=== PATIENT | female | born 1940 | race American Indian/Alaskan Native ===

== ENCOUNTER 2022-03-27 13:48 | Emergency (ER) | payer MEDICARE ==
--- NOTE | 2022-03-27 16:28 | Emergency Department Report ---
ED General Adult HPI - General Chief complaint: Urogenital-Female Stated complaint: URINE RETENTION Time Seen by Provider: 03/27/22 15:26 Source: patient, EMS Mode of arrival: Stretcher Limitations: Physical Limitation - History of Present Illness Initial comments: The patient presents to the emergency department from [facility] for evaluation of decreased urine output from a Hines catheter. Patient has noticed a decrease in urinary output since this weekend. Patient denies any fever or chills. There is also concerned that the patient has an infected bedsore. Patient denies chest pain, shortness breath, or headache. -: unknown Severity scale (0 -10): 0 Consistency: constant Improves with: none Worsens with: none Associated Symptoms: denies other symptoms Treatments Prior to Arrival: none - Related Data Previous Rx's Medication Instructions Recorded Last Taken Type Acetaminophen [Acetaminophen TAB] 650 mg PO Q4H PRN tablet 08/19/21 Unknown Rx Levothyroxine [Synthroid] 25 mcg PO DAILY@0600 #30 tablet 08/19/21 Unknown Rx Sulfamethoxazole/Trimethoprim 1 each PO BID #14 03/27/22 Unknown Rx [Bactrim DS TAB] Allergies Allergy/AdvReac Type Severity Reaction Status Date / Time Penicillins Allergy Hives Verified 03/27/22 13:55 ED Review of Systems ROS: Stated complaint: URINE RETENTION Other details as noted in HPI Comment: All other systems reviewed and negative Constitutional: denies: chills, fever Eyes: denies: eye pain, eye discharge, vision change ENT: denies: ear pain, throat pain Respiratory: denies: cough, shortness of breath, wheezing Cardiovascular: denies: chest pain, palpitations Endocrine: no symptoms reported Gastrointestinal: denies: abdominal pain, nausea, diarrhea Genitourinary: denies: urgency, dysuria, discharge Musculoskeletal: denies: back pain, joint swelling, arthralgia Skin: denies: rash, lesions Neurological: denies: headache, weakness, paresthesias Psychiatric: denies: anxiety, depression Hematological/Lymphatic: denies: easy bleeding, easy bruising ED Past Medical Hx - Past Medical History Hx Hypertension: Yes Hx Congestive Heart Failure: Yes Hx Diabetes: Yes Additional medical history: gout - Social History Smoking Status: Unknown if ever smoked - Medications Home Medications: Home Medications Medication Instructions Recorded Confirmed Last Taken Type Acetaminophen [Acetaminophen TAB] 650 mg PO Q4H PRN tablet 08/19/21 Unknown Rx Levothyroxine [Synthroid] 25 mcg PO DAILY@0600 #30 tablet 08/19/21 Unknown Rx Sulfamethoxazole/Trimethoprim 1 each PO BID #14 03/27/22 Unknown Rx [Bactrim DS TAB] ED Physical Exam - General Limitations: Physical Limitation General appearance: alert, in no apparent distress - Head Head exam: Present: atraumatic, normocephalic - Eye Eye exam: Present: normal appearance, PERRL, EOMI - ENT ENT exam: Present: mucous membranes moist - Neck Neck exam: Present: normal inspection - Respiratory Respiratory exam: Present: normal lung sounds bilaterally. Absent: respiratory distress - Cardiovascular Cardiovascular Exam: Present: regular rate, normal rhythm. Absent: systolic murmur, diastolic murmur, rubs, gallop - GI/Abdominal GI/Abdominal exam: Present: soft, normal bowel sounds. Absent: distended, tenderness - Extremities Exam Extremities exam: Present: normal inspection - Back Exam Back exam: Present: normal inspection - Neurological Exam Neurological exam: Present: alert, oriented X3, CN II-XII intact. Absent: motor sensory deficit - Psychiatric Psychiatric exam: Present: normal affect, normal mood - Skin Skin exam: Present: warm, dry, intact, normal color. Absent: rash ED Course Vital Signs 03/27/22 03/27/22 13:52 19:48 Temperature 97.2 F L Pulse Rate 104 H Respiratory 18 Rate Blood Pressure 134/62 [Left] O2 Sat by Pulse 98 97 Oximetry ED Medical Decision Making - Lab Data Result diagrams: 03/27/22 16:49 03/27/22 16:49 Lab Results 03/27/22 03/27/22 03/27/22 Range/Units 16:49 16:49 16:49 WBC 7.8 (4.5-11.0) K/mm3 RBC 2.64 L (3.65-5.03) M/mm3 Hgb 8.2 L (10.1-14.3) gm/dl Hct 26.3 L (30.3-42.9) % MCV 100 H (79-97) fl MCH 31 (28-32) pg MCHC 31 (30-34) % RDW 15.4 H (13.2-15.2) % Plt Count 242 (140-440) K/mm3 Lymph % (Auto) 12.7 L (13.4-35.0) % [place] % (Auto) 7.3 (0.0-7.3) % Eos % (Auto) 0.5 (0.0-4.3) % Baso % (Auto) 0.8 (0.0-1.8) % Lymph # (Auto) 1.0 L (1.2-5.4) K/mm3 [place] # (Auto) 0.6 (0.0-0.8) K/mm3 Eos # (Auto) 0.0 (0.0-0.4) K/mm3 Baso # (Auto) 0.1 (0.0-0.1) K/mm3 Seg Neutrophils % 78.7 H (40.0-70.0) % Seg Neutrophils # 6.1 (1.8-7.7) K/mm3 Sodium 138 (137-145) mmol/L Potassium 4.9 (3.6-5.0) mmol/L Chloride 106.2 (98-107) mmol/L Carbon Dioxide 13 L (22-30) mmol/L Anion Gap 24 mmol/L BUN 21 H (7-17) mg/dL Creatinine 1.5 H (0.6-1.2) mg/dL Estimated GFR 40 ml/min BUN/Creatinine Ratio 14 % Glucose 127 H (65-100) mg/dL Lactic Acid 0.90 (0.7-2.0) mmol/L Calcium 9.1 (8.4-10.2) mg/dL Total Bilirubin 0.50 (0.1-1.2) mg/dL AST 13 (5-40) units/L ALT 6 L (7-56) units/L Alkaline Phosphatase 73 (35-129) units/L Total Protein 6.9 (6.3-8.2) g/dL Albumin 3.7 L (3.9-5) g/dL Albumin/Globulin Ratio 1.2 % Urine Color (Yellow) Urine Turbidity (Clear) Specific [place] (Man) (1.003-1.030) Ur Protein (Man) (Negative) mg/dL Ur Ketones (Man) (Negative) Ur Nitrite (Man) (Negative) Ur Reducing Substances Urine Bilirubin (Man) (Negative) Urine Ictotest Leukocyte Esterase (Man) (Negative) Urine WBC (Auto) (0.0-6.0) /HPF Urine RBC (Auto) (0.0-6.0) /HPF U Epithel Cells (Auto) (0-13.0) /HPF Urine Bacteria (Auto) (Negative) /HPF Urine RBC (Manual) (Negative) Urine WBC Clumps /HPF Urine Mucus /HPF Urine Yeast (Budding) /HPF 03/27/22 Range/Units Unknown WBC (4.5-11.0) K/mm3 RBC (3.65-5.03) M/mm3 Hgb (10.1-14.3) gm/dl Hct (30.3-42.9) % MCV (79-97) fl MCH (28-32) pg MCHC (30-34) % RDW (13.2-15.2) % Plt Count (140-440) K/mm3 Lymph % (Auto) (13.4-35.0) % [place] % (Auto) (0.0-7.3) % Eos % (Auto) (0.0-4.3) % Baso % (Auto) (0.0-1.8) % Lymph # (Auto) (1.2-5.4) K/mm3 [place] # (Auto) (0.0-0.8) K/mm3 Eos # (Auto) (0.0-0.4) K/mm3 Baso # (Auto) (0.0-0.1) K/mm3 Seg Neutrophils % (40.0-70.0) % Seg Neutrophils # (1.8-7.7) K/mm3 Sodium (137-145) mmol/L Potassium (3.6-5.0) mmol/L Chloride (98-107) mmol/L Carbon Dioxide (22-30) mmol/L Anion Gap mmol/L BUN (7-17) mg/dL Creatinine (0.6-1.2) mg/dL Estimated GFR ml/min BUN/Creatinine Ratio % Glucose (65-100) mg/dL Lactic Acid (0.7-2.0) mmol/L Calcium (8.4-10.2) mg/dL Total Bilirubin (0.1-1.2) mg/dL AST (5-40) units/L ALT (7-56) units/L Alkaline Phosphatase (35-129) units/L Total Protein (6.3-8.2) g/dL Albumin (3.9-5) g/dL Albumin/Globulin Ratio % Urine Color Yellow (Yellow) Urine Turbidity Cloudy (Clear) Specific [place] (Man) 1.020 (1.003-1.030) Ur Protein (Man) 3+ (Negative) mg/dL Ur Ketones (Man) 1+ (Negative) Ur Nitrite (Man) Negative (Negative) Ur Reducing Substances Not Reportable Urine Bilirubin (Man) Negative (Negative) Urine Ictotest Not Reportable Leukocyte Esterase (Man) Small (Negative) Urine WBC (Auto) 131.0 H (0.0-6.0) /HPF Urine RBC (Auto) 10.0 (0.0-6.0) /HPF U Epithel Cells (Auto) 2.0 (0-13.0) /HPF Urine Bacteria (Auto) 2+ (Negative) /HPF Urine RBC (Manual) 3+ (Negative) Urine WBC Clumps 2+ /HPF Urine Mucus Few /HPF Urine Yeast (Budding) 2+ /HPF - Radiology Data Radiology results: report reviewed - Medical Decision Making Hines was replaced with minimal urinary output Laboratory values returned which endorsed the need for IV fluids Patient given 2 L IV fluids with potassium and urine Given p.o. Levaquin in the ED Critical care attestation.: If time is entered above; I have spent that time in minutes in the direct care of this critically ill patient, excluding procedure time. ED Disposition Clinical Impression: UTI (urinary tract infection), Dehydration, Hines catheter problem, Bedsore Disposition: 01 HOME / SELF CARE / HOMELESS Is pt being admited?: No Does the pt Need Aspirin: No Condition: Stable Instructions: Urinary Tract Infection, Adult, Dehydration, Adult, Rehydration, Elderly, Urinary Tract Infection, Adult, [id number] Additional Instructions: return if worse Prescriptions: Sulfamethoxazole/Trimethoprim [Bactrim DS TAB] 1 each PO BID #14 Referrals: PRIMARY CAREMD [Primary Care Provider] - 3-5 Days CAROLINE DORSEY MD [Staff Physician] - 3-5 Days [facility] [Outside] - 3-5 Days Time of Disposition: 23:49
[2022-03-27 17:11] LABS: Basophils # (Auto) 0.1 K/mm3 (0.0-0.1); Basophils % (Auto) 0.8 % (0.0-1.8); Eosinophils % (Auto) 0.5 % (0.0-4.3); Hematocrit 26.3 % (30.3-42.9); Hemoglobin 8.2 gm/dl (10.1-14.3); Lymphocytes % (Auto) 12.7 % (13.4-35.0); Mean Corpuscular HGB Conc 31 % (30-34); Mean Corpuscular Volume 100 fl (79-97); Monocytes # (Auto) 0.6 K/mm3 (0.0-0.8); Monocytes % (Auto) 7.3 % (0.0-7.3); Platelet Count 242 K/mm3 (140-440); Red Blood Count 2.64 M/mm3 (3.65-5.03); Red Cell Distribution Width 15.4 % (13.2-15.2)
[2022-03-27 17:31] LABS: Albumin 3.7 g/dL (3.9-5); Calcium 9.1 mg/dL (8.4-10.2)
[2022-03-27] MEDS ORDERED: SODIUM CHLORIDE 0.9% 1000 ML 1,000 ML IV ONE ×2 (19:28→21:52)
[2022-03-27 19:50] LABS: Bacteria,Urine 2+ /HPF (Negative); Color,Urine Yellow (Yellow); Mucus,Urine FEW /HPF
[2022-03-27] MEDS ORDERED: levoFLOXacin 750 MG TAB PO ONE (23:52)
[2022-03-28 06:10] VITALS: BP 127/75
== END 2022-03-28 09:44 | disposition home or self-care (01) ==
LOC: ED 13:48
DX: N39.0 Urinary tract infection, site not specified (principal); R33.9 Retention of urine, unspecified; Z46.6 Encounter for fitting and adjustment of urinary device; L89.90 Pressure ulcer of unspecified site, unspecified stage; I11.0 Hypertensive heart disease with heart failure; I50.9 Heart failure, unspecified; E11.9 Type 2 diabetes mellitus without complications; Z88.0 Allergy status to penicillin; Z79.899 Other long term (current) drug therapy
CPT/HCPCS: 36415; 51702; 80053; 81001; 82140; 85025; 87040; 96360; 96361; 99284